=== PATIENT | male | born 1930 | race Caucasian/White ===

== ENCOUNTER 2017-11-01 19:19 | Inpatient (IN) ==
[2017-11-01] MEDS ORDERED: SODIUM CHLORIDE 0.9% 1,000 ML IV STA ×2 (19:25→20:23)
[2017-11-01] MEDS ORDERED: cefTRIAXone 1,000 MG in SODIUM CHLORIDE 0.9% 100 ML IV STA (19:29)
[2017-11-01] MEDS ORDERED: ALBUTEROL 2.5 MG/3 ML NEB RESP TX SCH (19:30)
[2017-11-01] MEDS ORDERED: ATROPINE 1 MG/1 ML VIAL ONE (19:39)
[2017-11-01] MEDS ORDERED: VECURONIUM 10 MG VIAL IV ONE (19:51)
[2017-11-01 19:52] LABS: Hemoglobin 12.5 GM/DL (14.0-18.0); Immature Granulocytes % 1.9 %; Immature Granulocytes Absolute 0.31 #; Mean Corpuscular Volume 99.8 FL (87-102); Mean Platelet Volume 11.8 FL (9.6-12.0); Red Cell Distribution Width 13.6 % (9.3-17.3)
[2017-11-01 19:56] LABS: Basophils # 0.1 10*3/uL (0.0-0.2); Basophils % 0.3 % (0.0-0.8); Eosinophils # 0.1 10*3/uL (0.0-0.87); Eosinophils % 0.3 % (0.00-10.9); Hematocrit 41.4 VOL% (42.0-52.0); Lymphocytes # 4.2 10*3/uL (1.4-4.0); Lymphocytes % 25.8 % (21.2-54.2); Mean Corpuscular HGB Conc 30.2 GM/DL (32-36); Mean Corpuscular Hemoglobin 30 PG (27-34); Neutrophils # 10.7 10*3/uL (1.4-7.4); Neutrophils % 65.7 % (38.7-73.9); Platelet Count 174 T/CUMM (130-400); Red Blood Count 4.15 MC/CUMM (3.8-5.5); White Blood Count 16.3 T/CUMM (4-12)
[2017-11-01 20:02] LABS: INR 1.1; PT Patient Result 11.6 SECS; Partial Thromboplastin Time 28.4 SECS (0-40)
[2017-11-01 20:06] LABS: Albumin 2.9 G/DL (3.4-5.0); Bilirubin,Total 0.6 MG/DL (0.2-1.0); CKMB % 2.1 %; Calcium 7.6 MG/DL (8.5-10.1); Osmolality,Calculated 309.8 MOS/KG (273-304); Potassium 4.9 MMOL/L (3.5-5.1); Total Protein 5.4 G/DL (6.4-8.3)
[2017-11-01 20:09] LABS: Troponin I Only 0.23 NG/ML (0.00-0.045)
[2017-11-01] MEDS ORDERED: INSULIN REGULAR 100 UNIT/ML IV STA (20:23)
[2017-11-01] MEDS ORDERED: INSULIN REGULAR 100 UNIT/ML ONE (20:24)
[2017-11-01] MEDS ORDERED: ACETAMINOPHEN 325 MG TABLET PO PRN (20:30)
[2017-11-01] MEDS ORDERED: ALBUTEROL 2.5 MG/3 ML NEB RESP TX PRN (20:30)
[2017-11-01] MEDS ORDERED: ONDANSETRON 4 MG/2 ML VIAL IV PRN (20:30)
[2017-11-01] MEDS ORDERED: SODIUM CHLORIDE 0.9% 3,150 ML IV ONE (20:30)
[2017-11-01 20:47] LABS: Lactic Acid 10.3 MMOL/L (0.4-2.0)
[2017-11-01] MEDS ORDERED: ASPIRIN EC 81 MG TABLET PO SCH (21:00)
[2017-11-01 21:18] LABS: Magnesium 2.5 MG/DL (1.8-2.4); Thyroid Stimulating Hormone 4.75 uIU/ml (0.358-3.74)
[2017-11-01 21:24] LABS: ABG HCO3 13.6 MMOL/L (20-26); ABG Oxygen Saturation 87.3 % (95-100); ABG PCO2 61.4 MM HG (35-48); ABG PO2 77.4 MM HG (80-95); ABG TCO2 16.5 MMOL/L (23-27)
[2017-11-01 21:26] LABS: ABG PH 7.059 (7.35-7.45)
[2017-11-01] MEDS: SODIUM CHLORIDE 0.9% 1,000 ML IV SCH (21:37)
[2017-11-01] MEDS ORDERED: cefTRIAXone 1,000 MG VIAL ONE (21:39)
[2017-11-01 21:45] LABS: INR 1.1; PT Patient Result 11.7 SECS; Partial Thromboplastin Time 27.3 SECS (0-40)
[2017-11-01] MEDS: NOREPINEPHRINE 8 MG in SODIUM CHLORIDE 0.9% 242 ML IV SCH (22:30)
[2017-11-01] MEDS: PROPOFOL 1,000 MG/100 ML BOTTLE IV SCH (22:46)
[2017-11-01] MEDS: PANTOPRAZOLE 40 MG VIAL IV SCH (22:57)
[2017-11-01] MEDS ORDERED: MIDAZOLAM 100 MG in SODIUM CHLORIDE 0.9% 80 ML IV SCH (23:00)
[2017-11-01 23:01] LABS: ABG Base Excess -10.5 MMOL/L (-2.5-2.5); ABG HCO3 16.2 MMOL/L (20-26); ABG Oxygen Saturation 97.6 % (95-100); ABG PCO2 53.8 MM HG (35-48); ABG TCO2 17.5 MMOL/L (23-27); Allen Test Positive; Pt O2 Delivery Device Ventilator
[2017-11-01 23:03] LABS: ABG PH 7.154 (7.35-7.45)
[2017-11-01] MEDS ORDERED: GLUCAGON 1 MG VIAL IM PRN (23:38)
[2017-11-01] MEDS ORDERED: DEXTROSE 50% 25 GM/50 ML VIAL IV PRN (23:38)
[2017-11-01] MEDS ORDERED: SODIUM BICARBONATE 50 MEQ/50 ML SYRINGE IV ONE ×2 (23:38→23:44)
[2017-11-01] MEDS: PIPERACILLIN/TAZOBACTAM 3,375 MG in SODIUM CHLORIDE 0.9% 100 ML IV SCH (23:45)
[2017-11-02 00:06] LABS: Apearance,Urine CLOUDY (Clear); Bilirubin,Urine Negative (Negative); Blood, Urine Small mg/dL (Negative); Glucose,Urine (UA) >=500 mg/dL (Negative); Ketones,Urine Negative (Negative); Nitrite,Urine Negative (Negative); Protein,Urine 100 MG/DL; RBC,Urine 7 /HPF (0-4); Urine Color Amber (Yellow); Urine Specific Gravity 1.013 (1.001-1.035); Urine Urobilinogen < 2.0 EU/DL (0.2-1.0); WBC,Urine 4 /HPF (0-6)
[2017-11-02] MEDS: INSULIN REGULAR 100 UNIT/ML SUBCUT SCH ×7 (00:27→23:54)
[2017-11-02] MEDS: ALBUTEROL/IPRATROPIUM 3 ML NEB RESP TX SCH ×4 (01:16→19:44)
[2017-11-02] MEDS: DOPamine 800 MG/250 ML PREMIX IV SCH ×3 (01:18→21:32)
[2017-11-02 03:58] LABS: Albumin 2.7 G/DL (3.4-5.0); Bilirubin,Total 0.5 MG/DL (0.2-1.0); Osmolality,Calculated 308.1 MOS/KG (273-304); Potassium 4.4 MMOL/L (3.5-5.1); Risk Ratio 1.82; Total Protein 5.1 G/DL (6.4-8.3); VLDL CHOLESTEROL 24.8 MG/DL
[2017-11-02 03:59] LABS: Lactic Acid 3.7 MMOL/L (0.4-2.0)
[2017-11-02 04:12] LABS: CKMB % 9.4 %
[2017-11-02 04:17] LABS: Basophils % 0.1 % (0.0-0.8); Hematocrit 41.7 VOL% (42.0-52.0); Hemoglobin 13.1 GM/DL (14.0-18.0); Immature Granulocytes % 0.7 %; Immature Granulocytes Absolute 0.12 #; Mean Corpuscular HGB Conc 31.4 GM/DL (32-36); Mean Corpuscular Hemoglobin 30 PG (27-34); Mean Corpuscular Volume 95.4 FL (87-102); Mean Platelet Volume 11.4 FL (9.6-12.0); Monocytes # 1.4 10*3/uL (0.11-0.8); Monocytes % 8.3 % (1.7-12.7); Neutrophils # 13.8 10*3/uL (1.4-7.4); Neutrophils % 84.9 % (38.7-73.9); Platelet Count 151 T/CUMM (130-400); Red Blood Count 4.37 MC/CUMM (3.8-5.5); Red Cell Distribution Width 13.8 % (9.3-17.3); White Blood Count 16.2 T/CUMM (4-12)
[2017-11-02] MEDS: ENOXAPARIN 120 MG/0.8 ML SYRINGE SUBCUT SCH ×2 (04:45→16:40)
[2017-11-02] MEDS: SODIUM CHLORIDE 0.9% 1,000 ML IV SCH ×4 (04:48→21:33)
[2017-11-02] MEDS: PROPOFOL 1,000 MG/100 ML BOTTLE IV SCH ×5 (04:49→23:42)
[2017-11-02 05:02] LABS: Band Neutrophils 10 % (0-10); Hypochromasia 1+; Lymphocytes 5 % (20-55); Metamyelocytes 1 %; Microcytosis Slight; Segmented Neutrophils 75 % (50-85); Total Cells Counted 100
[2017-11-02 05:03] LABS: Platelet Estimate Adequate
[2017-11-02] MEDS: PIPERACILLIN/TAZOBACTAM 3,375 MG in SODIUM CHLORIDE 0.9% 100 ML IV SCH ×3 (06:35→23:16)
[2017-11-02 08:11] LABS: Lactic Acid 3.4 MMOL/L (0.4-2.0)
[2017-11-02 08:14] LABS: ABG Base Excess -4.9 MMOL/L (-2.5-2.5); ABG HCO3 20.4 MMOL/L (20-26); ABG PCO2 32.3 MM HG (35-48); ABG PH 7.383 (7.35-7.45); ABG TCO2 17.1 MMOL/L (23-27)
[2017-11-02] MEDS: CLOPIDOGREL 75 MG TABLET PO SCH (08:33)
[2017-11-02] MEDS: NOREPINEPHRINE 8 MG in SODIUM CHLORIDE 0.9% 242 ML IV SCH (12:56)
[2017-11-02] MEDS: ZINC OXIDE PASTE 113 GM TUBE TOP SCH ×2 (17:13→21:34)
[2017-11-02] MEDS: PANTOPRAZOLE 40 MG VIAL IV SCH (21:33)
[2017-11-02] MEDS: ASPIRIN CHEW 81 MG TABLET PO SCH (21:34)
[2017-11-03] MEDS: SODIUM CHLORIDE 0.9% 1,000 ML IV SCH ×5 (00:12→20:56)
[2017-11-03] MEDS: NOREPINEPHRINE 8 MG in SODIUM CHLORIDE 0.9% 242 ML IV SCH ×3 (00:22→23:53)
[2017-11-03] MEDS: ALBUTEROL/IPRATROPIUM 3 ML NEB RESP TX SCH ×4 (01:12→19:32)
[2017-11-03] MEDS: PROPOFOL 1,000 MG/100 ML BOTTLE IV SCH ×5 (03:31→20:06)
[2017-11-03 05:16] LABS: ABG Base Excess -4.6 MMOL/L (-2.5-2.5); ABG HCO3 20.6 MMOL/L (20-26); ABG Oxygen Saturation 98.7 % (95-100); ABG PCO2 36.9 MM HG (35-48); ABG PH 7.351 (7.35-7.45); ABG TCO2 18.3 MMOL/L (23-27); Allen Test Positive; Pt O2 Delivery Device Ventilator
[2017-11-03] MEDS: ENOXAPARIN 120 MG/0.8 ML SYRINGE SUBCUT SCH ×2 (05:53→16:31)
[2017-11-03] MEDS: INSULIN REGULAR 100 UNIT/ML SUBCUT SCH ×6 (05:53→23:57)
[2017-11-03] MEDS: PIPERACILLIN/TAZOBACTAM 3,375 MG in SODIUM CHLORIDE 0.9% 100 ML IV SCH ×3 (05:54→23:11)
[2017-11-03 05:58] LABS: Prealbumin 13.8 MG/DL (20-40)
[2017-11-03 06:07] LABS: Magnesium 2.3 MG/DL (1.8-2.4); Osmolality,Calculated 306.7 MOS/KG (273-304); Potassium 3.9 MMOL/L (3.5-5.1)
[2017-11-03 06:11] LABS: Albumin 2.3 G/DL (3.4-5.0); Bilirubin,Total 0.8 MG/DL (0.2-1.0); Osmolality,Calculated 308.6 MOS/KG (273-304); Total Protein 4.7 G/DL (6.4-8.3)
[2017-11-03 07:56] LABS: Basophils % 0.2 % (0.0-0.8); Eosinophils % 0.6 % (0.00-10.9); Hematocrit 20.6 VOL% (42.0-52.0); Immature Granulocytes % 0.6 %; Immature Granulocytes Absolute 0.03 #; Lymphocytes # 0.9 10*3/uL (1.4-4.0); Lymphocytes % 17.3 % (21.2-54.2); Mean Corpuscular HGB Conc 30.1 GM/DL (32-36); Mean Corpuscular Hemoglobin 30 PG (27-34); Mean Platelet Volume 11.6 FL (9.6-12.0); Monocytes # 0.5 10*3/uL (0.11-0.8); NRBC # 0.02 10*3/uL; Neutrophils # 3.7 10*3/uL (1.4-7.4); Neutrophils % 72.3 % (38.7-73.9); Platelet Count 54 T/CUMM (130-400); Red Blood Count 2.06 MC/CUMM (3.8-5.5); Red Cell Distribution Width 14.1 % (9.3-17.3); White Blood Count 5.1 T/CUMM (4-12)
[2017-11-03 08:10] LABS: Hemoglobin 6.2 GM/DL (14.0-18.0)
[2017-11-03 08:17] LABS: Allen Test Positive; Pt O2 Delivery Device Ventilator
[2017-11-03 08:19] LABS: ABG HCO3 19.3 MMOL/L (20-26); ABG Oxygen Saturation 98.3 % (95-100); ABG PCO2 33.6 MM HG (35-48); ABG PH 7.378 (7.35-7.45); ABG TCO2 20.4 MMOL/L (23-27)
[2017-11-03] MEDS ORDERED: SODIUM CHLORIDE 0.9% 1,000 ML IV PRN (08:37)
[2017-11-03 09:40] LABS: Basophils % 0.2 % (0.0-0.8); Eosinophils % 0.2 % (0.00-10.9); Hematocrit 31.3 VOL% (42.0-52.0); Immature Granulocytes % 0.5 %; Immature Granulocytes Absolute 0.03 #; Lymphocytes # 0.7 10*3/uL (1.4-4.0); Lymphocytes % 10.2 % (21.2-54.2); Mean Corpuscular HGB Conc 31.6 GM/DL (32-36); Mean Corpuscular Hemoglobin 30 PG (27-34); Mean Platelet Volume 11.6 FL (9.6-12.0); Monocytes # 0.4 10*3/uL (0.11-0.8); Monocytes % 5.4 % (1.7-12.7); Neutrophils # 5.4 10*3/uL (1.4-7.4); Neutrophils % 83.5 % (38.7-73.9); Platelet Count 91 T/CUMM (130-400); Red Blood Count 3.26 MC/CUMM (3.8-5.5); Red Cell Distribution Width 14.1 % (9.3-17.3); White Blood Count 6.5 T/CUMM (4-12)
[2017-11-03 09:46] LABS: Hemoglobin 9.9 GM/DL (14.0-18.0)
[2017-11-03 11:05] LABS: Burr Cells 2+
[2017-11-03 11:09] LABS: Hypochromasia 1+
[2017-11-03] MEDS: ZINC OXIDE PASTE 113 GM TUBE TOP SCH ×2 (11:35→20:55)
[2017-11-03] MEDS: CLOPIDOGREL 75 MG TABLET PO SCH (13:00)
[2017-11-03] MEDS: LACTULOSE 20 GM/30 ML UDCUP PO SCH (13:00)
[2017-11-03 13:51] LABS: Procalcitonin, S 52 ng/mL (<=0.15)
[2017-11-03] MEDS: ASPIRIN CHEW 81 MG TABLET PO SCH (20:51)
[2017-11-03] MEDS: DOPamine 800 MG/250 ML PREMIX IV SCH (20:56)
[2017-11-03] MEDS: PANTOPRAZOLE 40 MG VIAL IV SCH (20:57)
[2017-11-04] MEDS: ALBUTEROL/IPRATROPIUM 3 ML NEB RESP TX SCH ×4 (00:26→20:45)
[2017-11-04] MEDS: SODIUM CHLORIDE 0.9% 1,000 ML IV SCH ×5 (01:00→21:07)
[2017-11-04] MEDS: PROPOFOL 1,000 MG/100 ML BOTTLE IV SCH ×3 (02:19→19:12)
[2017-11-04 02:50] LABS: ABG Base Excess -7.9 MMOL/L (-2.5-2.5); ABG HCO3 18.1 MMOL/L (20-26); ABG Oxygen Saturation 99.1 % (95-100); ABG PCO2 37.2 MM HG (35-48); ABG PH 7.294 (7.35-7.45); ABG TCO2 15.9 MMOL/L (23-27); Pt O2 Delivery Device Ventilator
[2017-11-04] MEDS: INSULIN REGULAR 100 UNIT/ML SUBCUT SCH ×5 (05:01→20:58)
[2017-11-04] MEDS: ENOXAPARIN 120 MG/0.8 ML SYRINGE SUBCUT SCH (05:02)
[2017-11-04 06:09] LABS: Basophils % 0.2 % (0.0-0.8); Eosinophils % 0.2 % (0.00-10.9); Hematocrit 27.7 VOL% (42.0-52.0); Hemoglobin 9.3 GM/DL (14.0-18.0); Immature Granulocytes % 0.9 %; Immature Granulocytes Absolute 0.06 #; Lymphocytes # 0.8 10*3/uL (1.4-4.0); Lymphocytes % 11.5 % (21.2-54.2); Mean Corpuscular HGB Conc 33.6 GM/DL (32-36); Mean Corpuscular Hemoglobin 31 PG (27-34); Mean Corpuscular Volume 93.6 FL (87-102); Mean Platelet Volume 12.1 FL (9.6-12.0); Monocytes # 0.4 10*3/uL (0.11-0.8); Neutrophils # 5.3 10*3/uL (1.4-7.4); Neutrophils % 81.2 % (38.7-73.9); Platelet Count 83 T/CUMM (130-400); Red Blood Count 2.96 MC/CUMM (3.8-5.5); Red Cell Distribution Width 14.2 % (9.3-17.3); White Blood Count 6.5 T/CUMM (4-12)
[2017-11-04] MEDS: PIPERACILLIN/TAZOBACTAM 3,375 MG in SODIUM CHLORIDE 0.9% 100 ML IV SCH ×3 (06:25→22:55)
[2017-11-04 06:56] LABS: Burr Cells Few; Macrocytosis Slight; Platelet Estimate Decreased
[2017-11-04 06:57] LABS: Albumin 1.9 G/DL (3.4-5.0); Bilirubin,Total 0.7 MG/DL (0.2-1.0); Calcium 6.7 MG/DL (8.5-10.1); Osmolality,Calculated 318.4 MOS/KG (273-304); Potassium 4.2 MMOL/L (3.5-5.1); Total Protein 4.2 G/DL (6.4-8.3)
[2017-11-04] MEDS: LACTULOSE 20 GM/30 ML UDCUP PO SCH (12:48)
[2017-11-04] MEDS: ZINC OXIDE PASTE 113 GM TUBE TOP SCH ×2 (12:48→21:05)
[2017-11-04] MEDS: CLOPIDOGREL 75 MG TABLET PO SCH (12:49)
[2017-11-04] MEDS: PANTOPRAZOLE 40 MG VIAL IV SCH (20:58)
[2017-11-04] MEDS: ASPIRIN CHEW 81 MG TABLET PO SCH (20:58)
[2017-11-04] MEDS: DOPamine 800 MG/250 ML PREMIX IV SCH (21:05)
[2017-11-05] MEDS: NOREPINEPHRINE 8 MG in SODIUM CHLORIDE 0.9% 242 ML IV SCH (00:14)
[2017-11-05] MEDS: INSULIN REGULAR 100 UNIT/ML SUBCUT SCH ×7 (00:14→23:28)
[2017-11-05] MEDS: ALBUTEROL/IPRATROPIUM 3 ML NEB RESP TX SCH ×4 (00:28→19:37)
[2017-11-05] MEDS: SODIUM CHLORIDE 0.9% 1,000 ML IV SCH ×2 (02:28→04:46)
[2017-11-05] MEDS: PROPOFOL 1,000 MG/100 ML BOTTLE IV SCH ×5 (02:51→23:32)
[2017-11-05 03:41] LABS: ABG Base Excess -6.6 MMOL/L (-2.5-2.5); ABG Oxygen Saturation 96.5 % (95-100); ABG PCO2 30.6 MM HG (35-48); ABG PH 7.372 (7.35-7.45); ABG PO2 81.5 MM HG (80-95); ABG TCO2 16.4 MMOL/L (23-27); Allen Test Positive; Pt O2 Delivery Device Ventilator
[2017-11-05 05:30] LABS: Eosinophils % 0.2 % (0.00-10.9); Hematocrit 24.9 VOL% (42.0-52.0); Hemoglobin 7.9 GM/DL (14.0-18.0); Immature Granulocytes % 1.8 %; Immature Granulocytes Absolute 0.11 #; Lymphocytes # 0.6 10*3/uL (1.4-4.0); Lymphocytes % 10.2 % (21.2-54.2); Mean Corpuscular HGB Conc 31.7 GM/DL (32-36); Mean Corpuscular Hemoglobin 30 PG (27-34); Mean Corpuscular Volume 94.3 FL (87-102); Mean Platelet Volume 12.5 FL (9.6-12.0); Monocytes # 0.4 10*3/uL (0.11-0.8); Monocytes % 6.6 % (1.7-12.7); Neutrophils # 4.9 10*3/uL (1.4-7.4); Neutrophils % 81.2 % (38.7-73.9); Platelet Count 88 T/CUMM (130-400); Red Blood Count 2.64 MC/CUMM (3.8-5.5); Red Cell Distribution Width 14.3 % (9.3-17.3); White Blood Count 6.1 T/CUMM (4-12)
[2017-11-05] MEDS: PIPERACILLIN/TAZOBACTAM 3,375 MG in SODIUM CHLORIDE 0.9% 100 ML IV SCH (05:53)
[2017-11-05] MEDS ORDERED: FUROSEMIDE 40 MG/4 ML VIAL IV ONE (06:00)
[2017-11-05 06:10] LABS: Albumin 1.8 G/DL (3.4-5.0); Bilirubin,Total 0.8 MG/DL (0.2-1.0); Calcium 6.9 MG/DL (8.5-10.1); Osmolality,Calculated 320.4 MOS/KG (273-304); Potassium 4.5 MMOL/L (3.5-5.1); Total Protein 4.2 G/DL (6.4-8.3)
[2017-11-05 06:47] LABS: Band Neutrophils 10 % (0-10); Lymphocytes 21 % (20-55); Segmented Neutrophils 67 % (50-85); Total Cells Counted 100
[2017-11-05 06:48] LABS: Macrocytosis Slight; Platelet Estimate Decreased
[2017-11-05] MEDS: LACTULOSE 20 GM/30 ML UDCUP PO SCH (08:49)
[2017-11-05] MEDS: CLOPIDOGREL 75 MG TABLET PO SCH (08:49)
[2017-11-05] MEDS: ZINC OXIDE PASTE 113 GM TUBE TOP SCH ×2 (08:50→21:43)
[2017-11-05] MEDS: SODIUM CHLORIDE 0.45% 1,000 ML IV SCH ×2 (11:37→21:42)
[2017-11-05] MEDS: PANTOPRAZOLE 40 MG VIAL IV SCH (19:59)
[2017-11-05] MEDS: ASPIRIN CHEW 81 MG TABLET PO SCH (20:14)
[2017-11-05] MEDS: DOPamine 800 MG/250 ML PREMIX IV SCH (23:27)
[2017-11-06] MEDS: NOREPINEPHRINE 8 MG in SODIUM CHLORIDE 0.9% 242 ML IV SCH (00:15)
[2017-11-06] MEDS: ALBUTEROL/IPRATROPIUM 3 ML NEB RESP TX SCH ×4 (01:12→20:16)
[2017-11-06] MEDS: PROPOFOL 1,000 MG/100 ML BOTTLE IV SCH ×4 (01:29→17:51)
[2017-11-06 02:58] LABS: Basophils % 0.4 % (0.0-0.8); Eosinophils # 0.2 10*3/uL (0.0-0.87); Eosinophils % 2.3 % (0.00-10.9); Hemoglobin 8.1 GM/DL (14.0-18.0); Immature Granulocytes % 4.6 %; Immature Granulocytes Absolute 0.34 #; Lymphocytes # 0.9 10*3/uL (1.4-4.0); Lymphocytes % 12.3 % (21.2-54.2); Mean Corpuscular HGB Conc 31.2 GM/DL (32-36); Mean Corpuscular Hemoglobin 30 PG (27-34); Mean Corpuscular Volume 94.9 FL (87-102); Mean Platelet Volume 12.4 FL (9.6-12.0); Monocytes # 0.5 10*3/uL (0.11-0.8); Monocytes % 6.8 % (1.7-12.7); NRBC # 0.06 10*3/uL; Neutrophils # 5.5 10*3/uL (1.4-7.4); Neutrophils % 73.6 % (38.7-73.9); Platelet Count 116 T/CUMM (130-400); Red Blood Count 2.74 MC/CUMM (3.8-5.5); Red Cell Distribution Width 14.6 % (9.3-17.3); White Blood Count 7.5 T/CUMM (4-12)
[2017-11-06] MEDS: INSULIN REGULAR 100 UNIT/ML SUBCUT SCH ×6 (03:45→23:50)
[2017-11-06 04:21] LABS: Allen Test Positive; Pt O2 Delivery Device Ventilator
[2017-11-06 04:24] LABS: ABG Base Excess -6.1 MMOL/L (-2.5-2.5); ABG HCO3 19.4 MMOL/L (20-26); ABG Oxygen Saturation 98.5 % (95-100); ABG PCO2 31.5 MM HG (35-48); ABG PH 7.373 (7.35-7.45); ABG TCO2 17.1 MMOL/L (23-27)
[2017-11-06] MEDS: SODIUM CHLORIDE 0.45% 1,000 ML IV SCH ×2 (08:35→20:47)
[2017-11-06] MEDS: CLOPIDOGREL 75 MG TABLET PO SCH (09:41)
[2017-11-06] MEDS: LACTULOSE 20 GM/30 ML UDCUP PO SCH (09:41)
[2017-11-06] MEDS: ZINC OXIDE PASTE 113 GM TUBE TOP SCH ×3 (10:20→20:46)
[2017-11-06] MEDS: DOPamine 800 MG/250 ML PREMIX IV SCH ×2 (20:34→20:48)
[2017-11-06] MEDS: ASPIRIN CHEW 81 MG TABLET PO SCH (20:48)
[2017-11-06] MEDS: PANTOPRAZOLE 40 MG VIAL IV SCH (20:48)
[2017-11-07] MEDS: ALBUTEROL/IPRATROPIUM 3 ML NEB RESP TX SCH ×2 (00:36→07:10)
[2017-11-07 02:52] LABS: Basophils % 0.2 % (0.0-0.8); Eosinophils # 0.3 10*3/uL (0.0-0.87); Eosinophils % 3.5 % (0.00-10.9); Hematocrit 24.9 VOL% (42.0-52.0); Immature Granulocytes % 7.1 %; Immature Granulocytes Absolute 0.68 #; Lymphocytes # 1.1 10*3/uL (1.4-4.0); Lymphocytes % 11.4 % (21.2-54.2); Mean Corpuscular HGB Conc 32.1 GM/DL (32-36); Mean Corpuscular Hemoglobin 30 PG (27-34); Mean Corpuscular Volume 93.6 FL (87-102); Mean Platelet Volume 11.8 FL (9.6-12.0); Monocytes # 0.6 10*3/uL (0.11-0.8); Monocytes % 6.3 % (1.7-12.7); NRBC # 0.13 10*3/uL; Neutrophils # 6.9 10*3/uL (1.4-7.4); Neutrophils % 71.5 % (38.7-73.9); Platelet Count 136 T/CUMM (130-400); Red Blood Count 2.66 MC/CUMM (3.8-5.5); Red Cell Distribution Width 14.7 % (9.3-17.3); White Blood Count 9.6 T/CUMM (4-12)
[2017-11-07 03:27] LABS: Band Neutrophils 1 % (0-10); Eosinophils 3 % (0-10); Lymphocytes 11 % (20-55); Myelocytes 1 %; Nucleated Red Blood Cells 5 (0-5); Segmented Neutrophils 80 % (50-85); Total Cells Counted 100
[2017-11-07 03:28] LABS: Platelet Estimate Adequate
[2017-11-07 03:29] LABS: Polychromasia Slight
[2017-11-07] MEDS: INSULIN REGULAR 100 UNIT/ML SUBCUT SCH ×2 (03:39→10:12)
[2017-11-07 03:50] LABS: ABG Base Excess -6.6 MMOL/L (-2.5-2.5); ABG HCO3 16.7 MMOL/L (20-26); ABG Oxygen Saturation 98.4 % (95-100); ABG PCO2 26.2 MM HG (35-48); ABG PH 7.421 (7.35-7.45); ABG TCO2 17.5 MMOL/L (23-27)
[2017-11-07 03:54] LABS: Albumin 1.8 G/DL (3.4-5.0); Bilirubin,Total 0.5 MG/DL (0.2-1.0); Calcium 7.3 MG/DL (8.5-10.1); Magnesium 3.2 MG/DL (1.8-2.4); Osmolality,Calculated 324.6 MOS/KG (273-304); Potassium 4.9 MMOL/L (3.5-5.1); Total Protein 4.5 G/DL (6.4-8.3)
[2017-11-07] MEDS: SODIUM CHLORIDE 0.45% 1,000 ML IV SCH (06:20)
[2017-11-07] MEDS: PROPOFOL 1,000 MG/100 ML BOTTLE IV SCH ×2 (06:21)
[2017-11-07] MEDS ORDERED: SODIUM CHLORIDE 0.9% 1,000 ML IV PRN (08:06)
[2017-11-07] MEDS ORDERED: MEROPENEM 500 MG in SYRINGE 1 EACH IV SCH (08:30)
[2017-11-07] MEDS ORDERED: CARVEDILOL 3.125 MG TABLET PO SCH (09:00)
[2017-11-07] MEDS ORDERED: MORPHINE 2 MG/1 ML SYRINGE IV PRN (09:11)
[2017-11-07] MEDS: ZINC OXIDE PASTE 113 GM TUBE TOP SCH (10:13)
[2017-11-07] MEDS: CLOPIDOGREL 75 MG TABLET PO SCH (10:13)
[2017-11-07 10:37] VITALS: BP 144/70
[2017-11-07] MEDS ORDERED: SCOPOLAMINE 1.5 MG PATCH TRANSDERM PRN (11:55)
[2017-11-07] MEDS: LACTULOSE 20 GM/30 ML UDCUP PO SCH (11:57)
== END 2017-11-07 12:00 | disposition expired | DRG 870 ==
LOC: EDBD → EDUNIT# → N.ED 19:19 → SUPCPDRO 22:12 → N.ICU 22:12 → N.3E 11-07 11:52
PROVIDERS: ADMIT Internal Medicine Infectious Disease; ATTEND Internal Medicine Infectious Disease